=== PATIENT | female | born 1955 | race Caucasian/White ===

== ENCOUNTER → 2025-01-01 | Outpatient (CLI) | payer MEDICARE, OTHER, SELFPAY ==
--- NOTE | 2025-01-01 11:34 | NEURO ---
NCS and/or EMG Patient Report Ordering Doctor: Feliberto Burris DATE OF SERVICE: 01/01/25 Jasmyne presents with complaints of pain around the left thumb and intermittent feelings of the hand falling asleep Electrodiagnostic findings: Left median motor nerve demonstrates normal distal latency, amplitude and conduction velocity. Left ulnar motor response within normal limits, including conduction across the elbow. Normal median and ulnar F-wave on the left side. Sensory sponsors within normal limits. Needle EMG testing was performed the left upper limb. All muscles tested showed no evidence of denervation with normal motor unit action potentials. Electrodiagnostic impression: This is a normal electrodiagnostic study of the left upper limb. There is no electrodiagnostic evidence for peripheral neuropathy, including carpal tunnel or cubital tunnel syndrome. There is no electrodiagnostic evidence for cervical radiculopathy. Multi Select Codes Neurology Neurology Interp Codes: 21739-67 Musc test done w/n test comp (interp) and 90097-13 Nrv cndj test 7-8 studies (interp)
--- NOTE | 2025-01-01 11:34 | NEURO ---
NCS and/or EMG Patient Report Ordering Doctor: Feliberto Burris DATE OF SERVICE: 01/01/25 Jasmyne presents with complaints of pain around the left thumb and intermittent feelings of the hand falling asleep Electrodiagnostic findings: Left median motor nerve demonstrates normal distal latency, amplitude and conduction velocity. Left ulnar motor response within normal limits, including conduction across the elbow. Normal median and ulnar F-wave on the left side. Sensory sponsors within normal limits. Needle EMG testing was performed the left upper limb. All muscles tested showed no evidence of denervation with normal motor unit action potentials. Electrodiagnostic impression: This is a normal electrodiagnostic study of the left upper limb. There is no electrodiagnostic evidence for peripheral neuropathy, including carpal tunnel or cubital tunnel syndrome. There is no electrodiagnostic evidence for cervical radiculopathy. Multi Select Codes Neurology Neurology Interp Codes: 90898-45 Musc test done w/n test comp (interp) and 59655-18 Nrv cndj test 7-8 studies (interp)
== END | disposition home or self-care (01) ==
PROVIDERS: PCP Family Medicine; Referring Provider Orthopaedic Surgery; Visit Provider Orthopaedic Surgery
DX: R20.2 Paresthesia of skin (principal)
CPT/HCPCS: 95886; 95910